=== PATIENT | female | born 1990 | race Caucasian/White ===

== ENCOUNTER 2017-08-09 13:33 | Inpatient (IN) | payer OTHER ==
--- NOTE | 2017-08-09 14:54 | HHI.HP ---
HPI Chief Complaint SROM, contractions Date Seen: Aug 09, 2017 Time Seen: 15:00 Travel History International Travel<30 Days: No Contact w/Intl Traveler<30Days: No Known Affected Area: No History of Present Illness HPI Patient is a 26-year-old at 37 weeks and 6 days who presents after SROM and with regular contractions. The patient presents sent from [facility]'s office due to spontaneous rupture of membranes at 12:30 AM. She had a cervical exam at that time which showed 1 cm dilation. At around 4 AM to 4:15 AM, patient reports having contractions about every 10 minutes for an hour. Then, contractions stopped. She then ingested castor oil 2 and used a breast pump, which caused contractions come back every 5 or 6 minutes. Contractions have become increasingly close together. 12 hours after the first cervical check, she had another cervical check which showed 2 cm dilation, 80% effacement. She was planning on a home however because her membranes were ruptured for 12 hours she was sent to the hospital for hospital delivery. She reports good movement. She denies any vaginal bleeding like a period but reports some bloody show. Patient reports that she has had a normal, uncomplicated . Patient gets her care with [facility]. She reports that she is GBS negative. Her labs were negative. Weeks Gestation: 37 Para: 0 : 1 History Past Medical History Medical History: Denies Significant Hx Obstetric History Obstetric History This is her first . She reports that he has been normal and uncomplicated. She denies any history of STDs/abnormal Paps. Past Surgical History Narrative Surgical Tonsillectomy and adenoidectomy. Family History Narrative Family History Family history of ovarian cancer breast cancer. Social History Alcohol Use: No Tobacco Use: No Substance Abuse: No Allergies-Medications (Allergen,Severity, Reaction): Coded Allergies: No Known Allergies (Unverified , 08/09/17) Comments NKA Narrative Medication PNV Review of Systems Except as stated in HPI: all other systems reviewed are Neg Physical Exam 106/50, 74, 18, 98.5, pain 6 out of 10 Narrative GENERAL: Well-nourished, well-developed patient. SKIN: Warm and dry. HEAD: Normocephalic and atraumatic. EYES: No scleral icterus. No injection or drainage. ENT: No nasal drainage noted. Mucous membranes pink. Airway patent. NECK: Supple, trachea midline. No JVD. CARDIOVASCULAR: Regular rate and rhythm without murmurs, gallops, or rubs. RESPIRATORY: Breath sounds equal bilaterally. No accessory muscle use. ABDOMEN/GI: Abdomen soft, non-tender, bowel sounds present, no rebound, no guarding. By palpation, baby's back is to the left, head down. Gravid to [37] weeks size GENITOURINARY: exam deferred because of recent cervical check FHT's: Category: Category 1 Baseline: 130 Reactive: reactive Variability: moderate Decels: none Contractions: q3min EXTREMITIES: No cyanosis or edema. BACK: Nontender without obvious deformity. No CVA tenderness. NEUROLOGICAL: Awake and alert. Motor and sensory grossly within normal limits. Five out of 5 muscle strength in all muscle groups. Normal speech. Caprini VTE Risk Assessment Caprini VTE Risk Assessment: No/Low Risk (score <= 1) Caprini Risk Assessment Model Point Value = 1 Point Value = 2 Point Value = 3 Point Value = 5 Age 41-60 Minor surgery BMI > 25 kg/m2 Swollen legs Varicose veins or History of unexplained or recurrent spontaneous Oral contraceptives or hormone replacement Sepsis (< 1 month) Serious lung disease, including pneumonia (< 1 month) Abnormal pulmonary function Acute myocardial infarction Congestive heart failure (< 1 month) History of inflammatory bowel disease Medical patient at bed rest Age 61-74 Arthroscopic surgery Major open surgery (> 45 min) Laparoscopic surgery (> 45 min) Malignancy Confined to bed (> 72 hours) Immobilizing plaster cast Central venous access Age >= 75 History of VTE Family history of VTE Factor V Leiden Prothrombin [id number] Lupus anticoagulant Anticardiolipin antibodies Elevated serum homocysteine Heparin-induced thrombocytopenia Other congenital or acquired thrombophilia Stroke (< 1 month) Elective arthroplasty Hip, pelvis, or leg fracture Acute spinal cord injury (< 1 month) Prophylaxis Regimen Total Risk Factor Score Risk Level Prophylaxis Regimen 0-1 Low Early ambulation 2 Moderate Order ONE of the following: *Sequential Compression Device (SCD) *Heparin 5000 units SQ BID 3-4 Higher Order ONE of the following medications: *Heparin 5000 units SQ TID *Enoxaparin/Lovenox 40 mg SQ daily (WT < 150 kg, CrCl > 30 mL/min) *Enoxaparin/Lovenox 30 mg SQ daily (WT < 150 kg, CrCl > 10-29 mL/min) *Enoxaparin/Lovenox 30 mg SQ BID (WT < 150 kg, CrCl > 30 mL/min) AND/OR *Sequential Compression Device (SCD) 5 or more Highest Order ONE of the following medications: *Heparin 5000 units SQ TID (Preferred with Epidurals) *Enoxaparin/Lovenox 40 mg SQ daily (WT < 150 kg, CrCl > 30 mL/min) *Enoxaparin/Lovenox 30 mg SQ daily (WT < 150 kg, CrCl > 10-29 mL/min) *Enoxaparin/Lovenox 30 mg SQ BID (WT < 150 kg, CrCl > 30 mL/min) AND *Sequential Compression Device (SCD) Data Data Vital Signs Reviewed: Yes Orders Orders Ob (2e) Additional Admit Info (08/09/17 14:42) Assessment/Plan Problem List: (1) Active labor (2) SROM (spontaneous rupture of membranes) (3) Prolonged rupture of membranes ICD Codes: O42.90 - Premature rupture of membranes, unspecified as to length of time between rupture and onset of labor, unspecified weeks of gestation Assessment and Plan Patient is a 26-year-old at 37 weeks and 6 days who presents after SROM and with regular contractions. She was planning on a home however because her membranes were ruptured for 12 hours she was sent to the hospital for hospital delivery. Patient reports that she has had a normal, uncomplicated . Patient gets care from [facility]. She reports that she is GBS negative. Her labs were negative. Cervical exam deferred for now because of recent exam. heart tracing reassuring. 1) Prolonged ROM -Dr. Kelley discussed risk and benefits of vaginal versus delivery with patient -consider Pitocin, cervical ripening 2) in active labor -Admit to labor and delivery -ABO/Rh blood type, hold clot, type and screen, CBC, UDS, UA -LR IV -Fentanyl IV as needed for pain -Monitor heart rate -Monitor maternal vital signs -Monitor tocometry D/w Geraldo Simpson MD R2 Aug 09, 2017 14:54
--- NOTE | 2017-08-09 14:58 | PD ---
HPI Chief Complaint LOF, ctx, transferred from [facility] Travel History International Travel<30 Days: No Contact w/Intl Traveler<30Days: No Known Affected Area: No History of Present Illness HPI 26-year-old , IUP at 37.6 care uncomplicated per patient report The patient presents sent from [facility]'s office due to rupture of membranes at 12:30 AM. She was planning on a home however because her membranes were ruptured for 12 hours she was sent to the hospital for hospital delivery. She reports good movement. She reports continued leaking of fluid. She reports the fluid that she was leaking has been clear. She denies any vaginal bleeding although reports some bloody mucus. She reports she is having painful contractions every 2-3 minutes. Weeks Gestation: 37 Para: 0 : 1 Last Menstrual Period: Aug 09, 2017 History Past Medical History Medical History: Denies Significant Hx Obstetric History Obstetric History , denies any history of STDs/abnormal Paps Past Surgical History Narrative Surgical Tonsillectomy and adenoidectomy Family History Narrative Family History Breast cancer, ovarian cancer Social History Alcohol Use: No Tobacco Use: No Substance Abuse: No Review of Systems Except as stated in HPI: all other systems reviewed are Neg Physical Exam Narrative GENERAL: Well-nourished, well-developed patient. SKIN: Warm and dry. HEAD: Normocephalic and atraumatic. EYES: No scleral icterus. No injection or drainage. ENT: No nasal drainage noted. Mucous membranes pink. Airway patent. NECK: Supple, trachea midline. No JVD. CARDIOVASCULAR: Regular rate and rhythm without murmurs, gallops, or rubs. RESPIRATORY: Breath sounds equal bilaterally. No accessory muscle use. BREASTS: Deferred ABDOMEN/GI: Abdomen soft, non-tender, bowel sounds present, no rebound, no guarding Gravid GENITOURINARY: Deferred per patient request FHT's: heart tones in the 130s with moderate long-term variability, good accelerations, no decelerations noted. There is a category 1 heart rate tracing a reactive NST. EXTREMITIES: No cyanosis or edema. BACK: Nontender without obvious deformity. No CVA tenderness. NEUROLOGICAL/musculoskeletal: Awake and alert. Motor and sensory grossly within normal limits. Grossly normal muscle strength in all muscle groups. Normal speech. Grossly normal gait, range of motion. Psychiatric: Grossly normal memory and affect Data Data Orders Orders Ob (2e) Additional Admit Info (08/09/17 14:42) MDM Plan Assessment/plan: 1. IUP at 37.6 2. PROM: The patient reports her membranes ruptured at 12:30 AM. She was sent here from [facility] for [facility] and management of labor due to 12 hours of ruptured membranes. We discussed at length the risks, benefits, and alternatives to vaginal delivery. We discussed the risks and indications of delivery. We discussed that our goal is a healthy baby in a healthy mother followed by the goal for a vaginal delivery. We discussed that we would only perform delivery for medical indications. We discussed the likely use of oxytocin to assist with labor. We also discussed alternative methods of cervical ripening but will defer decision until vaginal examination is performed. The patient has requested no vaginal examination for several hours. 3. GBS negative 4. well-being: Reassuring testing with reactive NST and category 1 heart rate tracing. Will continue monitoring 5. Patient had many questions about care including vitamin K deferment , hepatitis B deferment, delayed bath, delayed cord clamping, and skin to skin. We discussed that delayed cord clamping is our routine for both vaginal deliveries and deliveries unless the needs assistance with transitioning. We discussed that skin to skin is also a routine, again unless the needs assistance with transitioning. All the patient's questions were answered. Renetta Kelley MD Aug 09, 2017 14:58
[2017-08-09] MEDS ORDERED: LACTATED RINGER'S 1000 ML INJ 1,000 ML IV PRN (15:20)
[2017-08-09] MEDS ORDERED: SODIUM CHLORID 0.9% 500 ML INJ 500 ML IV PRN (15:30)
[2017-08-09] MEDS ORDERED: MINERAL OIL 10 ML VIAL TOPICAL PRN (15:30)
[2017-08-09] MEDS ORDERED: OXYTOCIN 30 UNITS-500ML PREMIX 500 ML IV ONE (15:30)
[2017-08-09] MEDS ORDERED: LIDOCAINE HCL 1% 50 ML VIAL I-DERMAL PRN (15:30)
[2017-08-09] MEDS ORDERED: LIDOCAINE HCL 1% 50 ML VIAL INFIL PRN (15:30)
[2017-08-09 15:31] LABS: AUTOMATED NEUTROPHIL # 10.4 TH/MM3 (1.8-7.7); BASOPHIL % 0.1 % (0.0-2.0); HEMOGLOBIN 12.5 GM/DL (11.6-15.3); LYMPH % 6.4 % (9.0-44.0); LYMPHOCYTE # 0.7 TH/MM3 (1.0-4.8); MEAN CELL VOLUME 84.6 FL (80.0-100.0); MEAN CORPUSCULAR HEMOGLOBIN 28.5 PG (27.0-34.0); MEAN CORPUSCULAR HGB CONC 33.7 % (32.0-36.0); MEAN PLATELET VOLUME 7.5 FL (7.0-11.0); MONO % 3.3 % (0.0-8.0); MONOCYTE # 0.4 TH/MM3 (0-0.9); NEUT % 90.2 % (16.0-70.0); PLATELET COUNT 224 TH/MM3 (150-450); RED BLOOD COUNT 4.37 MIL/MM3 (4.00-5.30); RED CELL DISTRIBUTION WIDTH 12.8 % (11.6-17.2); WHITE BLOOD COUNT 11.6 TH/MM3 (4.0-11.0)
[2017-08-09] MEDS: LACTATED RINGER'S 1000 ML INJ 1,000 ML IV SCH ×2 (15:31→23:20)
[2017-08-09 15:35] LABS: BILIRUBIN, URINE NEG (NEG); BLOOD, URINE TRACE (NEG); GLUCOSE,URINE NEG (NEG); KETONE, URINE 40 mg/dL (NEG); MUCUS URINE FEW /lpf (OCC); NITRITE,URINE NEG (NEG); SQUAMOUS EPITHELIAL CELL URINE 1 /hpf (0-5); URINE COLOR YELLOW (YELLW/STRAW); URINE LEUKOCYTE ESTERASE NEG (NEG)
[2017-08-09] MEDS ORDERED: SODIUM CHLOR 0.9% 1000 ML INJ 1,000 ML IV PRN (15:40)
[2017-08-09] MEDS ORDERED: ONDANSETRON ODT 4 MG TAB PO PRN (15:45)
--- NOTE | 2017-08-09 16:01 | PD ---
History of Present Illness History of Present Illness NST report Indications: IUP at 37.6, PROM, abdominal pain FHR in the 130s, moderate usp variability, good accels, and no decels noted. This is a category 1 FHR tracing and reactive NST. F/U with continued monitoring Final dx: IUP at 37.6, PROM Renetta Kelley MD Aug 09, 2017 16:01
--- NOTE | 2017-08-09 23:51 | HHI.PR ---
Subjective Remarks OBHG S: patient reports contractions have increased in intensity O: VSS AF FHT: [place]: SVE: 3/90/-1 A/P: 1. IUP at 37.6 2. Prolonged PROM: patient has preferred to avoid oxytocin. She believes her contractions have become more intense. Discussed with patient her membranes have been ruptured for nearly 24 hours and at this point, oxytocin is medically indicated. Discussed again with patient that there is an increased risk of infection with prolonged ROM. Patient in agreement to start oxytocin. Discussed that we would start with conservative dosing. Discussed in brief internal monitoring and indications, would consider IUPC if not making appropriate change when enters active labor. 3. wellbeing: reassuring testing with reactive NST and category 1 FHR tracing, continue EFM. 4. GBS negative Objective Result Diagram: 08/09/17 Renetta Schumacher MD Aug 09, 2017 23:51
[2017-08-10] VITALS (91 sets, daily range): BP systolic 87–139; BP diastolic 47–92; PULSE 74–128; RESP 16–20; TEMP 97.8–98.5; O2SAT 100
[2017-08-10] MEDS ORDERED: OXYTOCIN 30 UNITS-500ML PREMIX 500 ML IV PRN
[2017-08-10] MEDS ORDERED: CITRIC ACID-SODIUM CITRATE LIQ 30 ML UDC ONE ×2 (05:40→16:39)
--- NOTE | 2017-08-10 08:49 | HHI.PR ---
Subjective Remarks OBHG S: patient reports contractions have increased in intensity O: VSS AF FHT: 130s, moderate intermediate variability, good accelerations, no decelerations [place]: q4-5 SVE: 7/C/-1 A/P: 1. IUP at 38 2. Prolonged PROM: patient has preferred to avoid oxytocin. Oxytocin was started and patient progressed to 6cm dilated on maximum of oxytocin 2 miu/min. She desired to walk and shower, so oxytocin was stopped. Discussed use of oxytocin and the patient and family were in agreement. Patient would like to continue to ambulate and squat and discussed that can do that in her room. Discussed that we would again start with conservative dosing. Discussed in brief internal monitoring and indications, would consider IUPC/FSE if indicated. Patient remains AF and no evidence of chorioamnionitis. 3. wellbeing: reassuring testing with reactive NST and category 1 FHR tracing, continue EFM. 4. GBS negative: continue to treat by CDC recommendations Objective Result Diagram: 08/09/17 1400 Renetta Kelley MD Aug 10, 2017 08:49
[2017-08-10] MEDS ORDERED: fentaNYL 2MCG-BUPIV 0.125% INJ 150 ML EPIDURAL ONE (13:12)
[2017-08-10] MEDS ORDERED: ePHEDrine/NS 25 MG/5 ML SYRINGE ONE (13:12)
[2017-08-10] MEDS ORDERED: LIDOCAINE 2%/EPINEPHrine PF 1:200,000 20ML SDV ONE (14:07)
[2017-08-10] MEDS ORDERED: DIPHTH/TETANUS/ACEL PERTUSSIS (BOOSTER) 0.5 ML VIAL/PFS IM ONE (16:00)
[2017-08-10] MEDS ORDERED: MEASLES, MUMPS, RUBELLA VACCINE 0.5 ML VIAL SQ ONE (16:00)
[2017-08-10] MEDS ORDERED: NO SYSTEM NARCOTICS PRN (16:15)
[2017-08-10] MEDS ORDERED: DO NOT ADMINISTER ANTICOAGULANTS PRN (16:15)
[2017-08-10] MEDS ORDERED: fentaNYL 2MCG-BUPIV 0.125% 150 ML EPIDURAL PRN (16:15)
[2017-08-10] MEDS ORDERED: ePHEDrine/NS 25 MG/5 ML SYRINGE IV PUSH PRN (16:15)
--- NOTE | 2017-08-10 18:52 | PD.OB.DELI ---
Weeks gestation: 37 Anesthesia: Epidural Episiotomy: None Vaginal Delivery: Normal Presentation: Occiput anterior Nuchal Cord: x1 Delayed cord clamping (45 sec): Yes : Female, Single Delivery date: Aug 10, 2017 Delivery time: 18:28 One Minute : 9 Five Minute : 9 Weight: 3030 gm Placenta: Spontaneous delivery, Intact Laceration: Vaginal laceration, Perineal laceration, 2 deg Repair: Chromic running Estimated blood loss: 200cc Additional Information prolong PROM Adan Frederick II, MD Aug 10, 2017 18:52
[2017-08-10] MEDS ORDERED: ALUMINUM/MAGNESIUM/SIMETH 30 ML CUP PO PRN (19:00)
[2017-08-10] MEDS ORDERED: ACETAMINOPHEN 325 MG TAB PO PRN (19:00)
[2017-08-10] MEDS ORDERED: DOCUSATE SODIUM 50 MG/SENNA 8.6 MG TAB PO PRN (19:00)
[2017-08-10] MEDS ORDERED: WITCH HAZEL 50%/GLYCERIN 12.5% 40 PAD JAR TOPICAL PRN (19:00)
[2017-08-10] MEDS ORDERED: oxyCODONE/ACETAMINOPHEN 5 MG/325 MG TAB PO PRN (19:00)
[2017-08-10] MEDS ORDERED: OXYTOCIN 30 UNITS-500ML PREMIX 500 ML IV SCH (19:00)
[2017-08-10] MEDS ORDERED: SODIUM CHLORIDE 0.9% FLUSH 10 ML FLUSH IV FLUSH PRN (19:00)
[2017-08-10] MEDS ORDERED: ZOLPIDEM TARTRATE 5 MG TAB PO PRN (19:00)
[2017-08-10] MEDS ORDERED: ONDANSETRON ODT 4 MG TAB PO PRN (19:00)
[2017-08-10] MEDS ORDERED: BENZOCAINE 20% TOPICAL SPRAY 60 ML CAN TOPICAL PRN (19:00)
[2017-08-10] MEDS ORDERED: SODIUM CHLORIDE 0.9% FLUSH 10 ML FLUSH IV FLUSH SCH (21:00)
[2017-08-10] MEDS: IBUPROFEN 800 MG TAB PO PRN (21:54)
[2017-08-11] MEDS: IBUPROFEN 800 MG TAB PO PRN ×2 (07:04→15:15)
--- NOTE | 2017-08-11 07:05 | HHI.OB ---
Subjective Remarks Patient is a 26-year-old delivered at 38 weeks and 0 days. Patient is day 1 after . Patient's pain is well-controlled. Patient reports eating and drinking without any nausea or vomiting. Patient reports minimal bleeding. Patient has passed gas but no bowel movements. Patient is walking without lower extremity pain or shortness of breath. Patient reports no desire for contraception and plans on breast-feeding. Objective Objective Remarks GENERAL: Well-nourished, well-developed patient. CARDIOVASCULAR: Regular rate and rhythm without murmurs, gallops, or rubs. RESPIRATORY: Breath sounds equal bilaterally. No accessory muscle use. ABDOMEN/GI: Abdomen soft, non-tender. Fundus: Firm, non-tender at umbilicus. GENITOURINARY: Light to moderate bleeding. EXTREMITIES: No cyanosis or edema, non-tender, without signs of DVT. Medications and IVs Current Medications Medications (Trade) Dose Ordered Sig/Sophie Route Start Time Stop Time Status Last Admin Lactated Ringer's 1,000 ml @ 125 mls/hr Q8H IV 08/09/17 15:20 08/09/17 23:20 Lactated Ringer's 1,000 ml @ 3,000 mls/hr Q20M PRN IV 08/09/17 15:20 Sodium Chloride 1,000 ml @ 100 mls/hr Q10H PRN IV 08/09/17 15:40 (Xylocaine 1% Inj (50 ml)) 0.1 ml UNSCH X1 PRN I-DERMAL 08/09/17 15:30 08/12/17 15:29 (Zofran Odt) 4 mg Q6H PRN PO 08/09/17 15:45 (fentaNYL INJ) 50 mcg Q1H PRN IV PUSH 08/09/17 15:30 08/10/17 11:39 (fentaNYL INJ) 100 mcg Q1H PRN IV PUSH 08/09/17 15:30 (Xylocaine 1% Inj (50 ml)) 10 ml UNSCH X1 PRN INFIL 08/09/17 15:30 08/11/17 15:29 (Muri-Lube Oil) 10 ml UNSCH PRN TOPICAL 08/09/17 15:30 Oxytocin 500 ml @ 0 mls/hr TITRATE PRN IV 08/10/17 00:00 08/10/17 00:04 ([facility] Nursing Information) No systemic narcotics to be given except... UNSCH PRN .XX 08/10/17 16:15 08/11/17 16:14 ([facility] Nursing Information) DO NOT ADMINISTER ANY ANTICOAGUL... UNSCH PRN .XX 08/10/17 16:15 08/11/17 16:14 Fentanyl/ Bupivacaine/ Sodium Chlor 150 ml @ 0 mls/hr TITRATE PRN EPIDURAL 08/10/17 16:15 (ePHEDrine/NS 25 MG/5 ML SYR) 10 mg UNSCH PRN IV PUSH 08/10/17 16:15 08/11/17 16:14 (NS Flush) 2 ml BID IV FLUSH 08/10/17 21:00 (NS Flush) 2 ml UNSCH PRN IV FLUSH 08/10/17 19:00 (Tylenol) 650 mg Q4H PRN PO 08/10/17 19:00 (Motrin) 800 mg Q8H PRN PO 08/10/17 19:00 08/10/17 21:54 (Percocet 5-325 Mg) 1 tab Q4H PRN PO 08/10/17 19:00 (Americaine 20% Top Spr) 1 spray Q4H PRN TOPICAL 08/10/17 19:00 08/10/17 21:53 (Tucks Pads) 1 applic QID PRN TOPICAL 08/10/17 19:00 08/10/17 21:53 (Larissa-Colace) 2 tab Q12H PRN PO 08/10/17 19:00 (Ambien) 5 mg HS PRN PO 08/10/17 19:00 (Mag-Al Plus Susp Liq) 15 ml Q8H PRN PO 08/10/17 19:00 (Zofran Odt) 4 mg Q6H PRN PO 08/10/17 19:00 Assessment/Plan Problem List: (1) Active labor (2) SROM (spontaneous rupture of membranes) (3) Prolonged rupture of membranes ICD Codes: O42.90 - Premature rupture of membranes, unspecified as to length of time between rupture and onset of labor, unspecified weeks of gestation Assessment and Plan Patient is a 26-year-old delivered at 38 weeks and 0 days. Patient is day 1 after . Patient was counseled to do 6 weeks of pelvic rest. Patient was counseled to follow up in 6 weeks. Patient requested follow-up and has no desire for contraception. --AF VSS --Continue routine care --Motrin and Tylenol when necessary for pain --Encourage OOB --Pelvic rest for 6 weeks will need follow-up appointment at that time. --Contraception: Family planning only --Anticipate discharge tomorrow Boom Gonzalez MD R1 Aug 11, 2017 07:05
[2017-08-11] MEDS: LACTATED RINGER'S 1000 ML INJ 1,000 ML IV SCH (08:56)
[2017-08-11 20:00] VITALS: BP 96/68; PULSE 68; RESP 18; TEMP 98.6; O2SAT 97
[2017-08-12 08:00] VITALS: BP 103/66; PULSE 62; RESP 20; TEMP 97.8; O2SAT 97
--- NOTE | 2017-08-12 09:14 | HHI.OB ---
Subjective Remarks Patient is a 26-year-old delivered at 38 weeks and 0 days. Patient is day 2 after . Patient's pain is well-controlled. Patient reports eating and drinking without any nausea or vomiting. Patient reports minimal bleeding. Patient has passed gas and no bowel movements. Patient is walking without lower extremity pain or shortness of breath. Patient reports desire for no contraception and plans on breast-feeding. Objective Objective Remarks GENERAL: Well-nourished, well-developed patient. CARDIOVASCULAR: Regular rate and rhythm without murmurs, gallops, or rubs. RESPIRATORY: Breath sounds equal bilaterally. No accessory muscle use. ABDOMEN/GI: Abdomen soft, non-tender. Fundus: Firm, non-tender at umbilicus. GENITOURINARY: Light to moderate bleeding. EXTREMITIES: No cyanosis or edema, non-tender, without signs of DVT. Medications and IVs Current Medications Medications (Trade) Dose Ordered Sig/Sophie Route Start Time Stop Time Status Last Admin Lactated Ringer's 1,000 ml @ 125 mls/hr Q8H IV 08/09/17 15:20 08/09/17 23:20 Lactated Ringer's 1,000 ml @ 3,000 mls/hr Q20M PRN IV 08/09/17 15:20 Sodium Chloride 1,000 ml @ 100 mls/hr Q10H PRN IV 08/09/17 15:40 (Xylocaine 1% Inj (50 ml)) 0.1 ml UNSCH X1 PRN I-DERMAL 08/09/17 15:30 08/12/17 15:29 (Zofran Odt) 4 mg Q6H PRN PO 08/09/17 15:45 (fentaNYL INJ) 50 mcg Q1H PRN IV PUSH 08/09/17 15:30 08/10/17 11:39 (fentaNYL INJ) 100 mcg Q1H PRN IV PUSH 08/09/17 15:30 (Muri-Lube Oil) 10 ml UNSCH PRN TOPICAL 08/09/17 15:30 Oxytocin 500 ml @ 0 mls/hr TITRATE PRN IV 08/10/17 00:00 08/10/17 00:04 Fentanyl/ Bupivacaine/ Sodium Chlor 150 ml @ 0 mls/hr TITRATE PRN EPIDURAL 08/10/17 16:15 (NS Flush) 2 ml BID IV FLUSH 08/10/17 21:00 (NS Flush) 2 ml UNSCH PRN IV FLUSH 08/10/17 19:00 (Tylenol) 650 mg Q4H PRN PO 08/10/17 19:00 (Motrin) 800 mg Q8H PRN PO 08/10/17 19:00 08/11/17 15:15 (Percocet 5-325 Mg) 1 tab Q4H PRN PO 08/10/17 19:00 (Americaine 20% Top Spr) 1 spray Q4H PRN TOPICAL 08/10/17 19:00 08/10/17 21:53 (Tucks Pads) 1 applic QID PRN TOPICAL 08/10/17 19:00 08/10/17 21:53 (Larissa-Colace) 2 tab Q12H PRN PO 08/10/17 19:00 (Ambien) 5 mg HS PRN PO 08/10/17 19:00 (Mag-Al Plus Susp Liq) 15 ml Q8H PRN PO 08/10/17 19:00 (Zofran Odt) 4 mg Q6H PRN PO 08/10/17 19:00 Assessment/Plan Problem List: (1) Active labor (2) SROM (spontaneous rupture of membranes) (3) Prolonged rupture of membranes ICD Codes: O42.90 - Premature rupture of membranes, unspecified as to length of time between rupture and onset of labor, unspecified weeks of gestation Assessment and Plan Patient is a 26-year-old delivered at 38 weeks and 0 days. Patient is day 2 after . Patient was counseled to do 6 weeks of pelvic rest. Patient was counseled to follow up in 6 weeks. Patient requested follow-up and has no desire for contraception. --AF VSS --Continue routine care --Motrin and Tylenol when necessary for pain --Encourage OOB --Pelvic rest for 6 weeks will need follow-up appointment at that time. --Contraception: Family planning only --Anticipate discharge today Boom Gonzalez MD R1 Aug 12, 2017 09:14
[2017-08-12] MEDS ORDERED: IBUP1TAB7 PO (09:15)
[2017-08-12] MEDS: IBUPROFEN 800 MG TAB PO PRN (09:16)
--- NOTE | 2017-08-12 09:16 | HHI.DCPOC ---
Discharge Care Plan Diagnosis: (1) Vaginal delivery Report Symptoms to Your Doctor -Temperature above 100.5 degrees -Redness, of incision or excessive or foul smelling drainage -Unusual pain or calf pain -Increased vaginal bleeding -Painful or difficulty urinating -Feelings of extreme sadness or anxiety after 2 weeks Goals to Promote Your Health * To prevent worsening of your condition and complications * To maintain your health at the optimal level Directions to Meet Your Goals Take your medications as prescribed Follow your dietary instruction Follow activity as directed Ensure plenty of rest for recovery Drink fluids for hydration Keep your appointments as scheduled Take your immunizations and boosters as scheduled If your symptoms worsen call your PCP, if no PCP go to Urgent Care Center or Emergency Room Smoking is Dangerous to Your Health. Avoid second hand smoke Call the 24-hour crisis hotline for domestic abuse at Boom Gonzalez MD R1 Aug 12, 2017 09:16
== END 2017-08-12 18:43 | disposition home or self-care (01) | DRG 775 ==
LOC: HOBED 13:33 → H2EA 14:43 → H1EA 08-10 21:08
PROVIDERS: ADMIT Obstetrics & Gynecology; ATTEND Obstetrics & Gynecology
PROC: 10E0XZZ Delivery of Products of Conception, External Approach (ICD-10-PCS; principal; 2017-08-10)
PROC: 0KQM0ZZ Repair Perineum Muscle, Open Approach (ICD-10-PCS; 2017-08-10)
PROC: 00HU33Z Insertion of Infusion Device into Spinal Canal, Percutaneous Approach (ICD-10-PCS; 2017-08-10)
PROC: 3E0R3BZ Introduction of Anesthetic Agent into Spinal Canal, Percutaneous Approach (ICD-10-PCS; 2017-08-10)
DX: O42.92 Full-term premature rupture of membranes, unspecified as to length of time between rupture and onset of labor (principal); O69.81X0 Labor and delivery complicated by cord around neck, without compression, not applicable or unspecified; O70.1 Second degree perineal laceration during delivery; Z3A.37 37 weeks gestation of pregnancy; Z37.0 Single live birth; Z23 Encounter for immunization
CPT/HCPCS: 59025; 80307; 81001; 84112; 85025; 86850; 86900; 86901; 88307; 99283; G0481; J2590; J3010; J7120